=== PATIENT | male | born 1990 | race Caucasian/White ===

== ENCOUNTER 2018-06-30 16:04 | Outpatient (CLI) | payer MEDICAID, SELFPAY ==
[2018-06-30 16:58] LABS: HCT 44.9 % (40.0-50.0); HGB 15.4 g/dL (13.5-17.5); Mean Corp. HGB Concentration 34.3 g/dL (32.0-36.0); Mean Corpuscular Hemoglobin 29.1 pg (27.0-33.0); Mean Corpuscular Volume 84.7 fL (80-95); Mean Platelet Volume 10.8 fL (8.0-11.0); Platelet Count 224 x1000/uL (130-400); RBC Distribution Width 13.1 % (11.8-14.1); White Blood Cell Count 7.92 k/cumm (4.4-10.8)
[2018-06-30 17:41] LABS: ALT 44 U/L (12-78); AST 29 U/L (15-37); Albumin 3.8 g/dL (3.4-5.0); Alkaline Phosphatase 146 U/L (46-116); BUN 18 mg/dL (7-18); Bilirubin, Total 0.3 mg/dL (0.2-1.0); C-Reactive Protein 0.75 mg/dL (0.0-0.3); CREATININE 1.06 mg/dL (0.70-1.30); Calcium 8.7 mg/dL (8.5-10.1); Chloride 104 mmol/L (98-107); Glucose 85 mg/dL (70-100); Potassium 4.5 mmol/L (3.5-5.1); Sodium 140 mmol/L (136-145); Total Protein 6.8 g/dL (6.4-8.2)
[2018-06-30 17:52] LABS: ESR 2 MM/HR (0-15)
== END 2018-06-30 16:24 ==
PROVIDERS: PCP Nurse Practitioner Family; Visit Provider Nurse Practitioner Family
DX: K92.1 Melena (principal)
CPT/HCPCS: 36415; 80053; 85027; 85652; 86140

== ENCOUNTER 2020-03-29 09:19 | Outpatient (REF) | payer MEDICAID, SELFPAY | END 2020-03-29 09:39 | LOC: LBN 09:19 | PROVIDERS: PCP Nurse Practitioner Family; Visit Provider Nurse Practitioner Family | DX: R15.9 Full incontinence of feces (principal) | CPT/HCPCS: 83630 ==

== ENCOUNTER 2023-01-18 15:25 | Outpatient (CLI) | payer MEDICAID, SELFPAY ==
[2023-01-18 15:04] LABS: Abs Immature Grans 0.02 10^3/uL (0.0-0.06); Absolute Basophil Count 0.02 10^3/uL (0.0-0.2); Absolute Eosinophil Count 0.11 10^3/uL (0.0-0.7); Absolute Lymphocyte Count 1.96 10^3/uL (1.2-3.4); Absolute Monocyte Count 0.38 10^3/uL (0.1-0.8); Absolute Neutrophil Count 5.82 10^3/uL (1.2-6.7); Basophils % 0.2; Eosinophils % 1.3; HGB 16.3 g/dL (13.5-17.5); Immature Grans % 0.2; Lymphocytes % 23.6; MCH 28.6 pg (27.0-33.0); MCV 84 fL (80-95); MPV 10.6 fL (8.0-11.0); Monocytes % 4.6; Neutrophils % 70.1; Platelet Count 230 10^3/uL (130-400); RDW 12.9 % (11.8-14.1); RDW-SD 39.7 fL; WBC 8.31 10^3/uL (4.4-10.8)
[2023-01-18 16:08] LABS: ALT 49 U/L (16-63); AST 26 U/L (15-37); Albumin 3.9 g/dL (3.4-5.0); Alkaline Phosphatase 111 U/L (46-116); BUN 11 mg/dL (7-18); Bilirubin, Total 0.5 mg/dL (0.2-1.0); Calcium 8.7 mg/dL (8.5-10.1); Calculated LDL 120 mg/dL (<100); Chloride 106 mmol/L (98-107); Cholesterol 199 mg/dL (<200); Estimated GFR 103.84 (mL/min/1.73m2); Glucose 102 mg/dL (74-106); HDL Cholesterol 28 mg/dL (40-60); Potassium 3.8 mmol/L (3.5-5.1); Sodium 143 mmol/L (136-145); Total Protein 7.3 g/dL (6.4-8.2); Triglyceride 257 mg/dL (<150)
[2023-01-20 09:58] LABS: HIV-1/2 Ag & Ab Screen Negative (Negative)
[2023-01-21 15:17] LABS: Hepatitis C Ab w Rflx HCV PCR Negative (Negative)
== END 2023-01-18 15:26 | disposition home or self-care (01) ==
LOC: LBO 15:31
PROVIDERS: PCP Nurse Practitioner Family; Visit Provider Nurse Practitioner Family
DX: E78.5 Hyperlipidemia, unspecified (principal); Z13.1 Encounter for screening for diabetes mellitus; Z11.4 Encounter for screening for human immunodeficiency virus [HIV]; Z11.59 Encounter for screening for other viral diseases
CPT/HCPCS: 36415; 80053; 80061; 86803; 87389; 85025

== ENCOUNTER 2024-04-14 02:01 | Outpatient (CLI) | payer MEDICAID, SELFPAY ==
[2024-04-14 09:23] LABS: HCT 48.3 % (40.0-50.0); HGB 16.2 g/dL (13.5-17.5); MCH 28.8 pg (27.0-33.0); MCHC 33.5 % (32.0-36.0); MCV 86 fL (80-95); MPV 10.3 fL (8.0-11.0); Platelet Count 234 10^3/uL (130-400); RBC 5.63 10^6/uL (4.36-5.78); RDW 12.9 % (11.8-14.1); RDW-SD 40.1 fL; WBC 7.37 10^3/uL (4.4-10.8)
[2024-04-14 10:16] LABS: VALPROIC ACID 47.5 ug/mL
[2024-04-14 10:34] LABS: ALT 39 U/L (16-63); AST 26 U/L (15-37); Albumin 3.8 g/dL (3.4-5.0); Alkaline Phosphatase 116 U/L (46-116); Anion Gap 7.4 mmol/L (3-11); BUN 21 mg/dL (7-18); Bilirubin, Total 0.35 mg/dL (0.2-1.0); CO2 30.6 mmol/L (21.0-32.0); Calculated LDL 117 mg/dL (<100); Chloride 107 mmol/L (98-107); Cholesterol 192 mg/dL (<200); Estimated GFR 103.19 (mL/min/1.73m2); Glucose 97 mg/dL (74-106); HDL Cholesterol 33 mg/dL (40-60); Potassium 4.6 mmol/L (3.5-5.1); Sodium 145 mmol/L (136-145); TSH (W/Ref FT4) 4.43 uIU/mL (0.36-3.74); Total Protein 7.3 g/dL (6.4-8.2); Triglyceride 210 mg/dL (<150)
[2024-04-14 10:51] LABS: FREE T4 0.73 ng/dL (0.76-1.46)
[2024-04-15 11:27] LABS: IgA 158 mg/dL (85-499); Interpretation (See Note); Tissue Transglutaminase IgA <4.0 CU (<20.0)
== END 2024-04-14 02:02 | disposition home or self-care (01) ==
LOC: LBO 02:01
PROVIDERS: PCP Nurse Practitioner Family; Visit Provider Nurse Practitioner Family
DX: K59.00 Constipation, unspecified (principal); R19.8 Other specified symptoms and signs involving the digestive system and abdomen; Z79.899 Other long term (current) drug therapy; E78.5 Hyperlipidemia, unspecified; F90.9 Attention-deficit hyperactivity disorder, unspecified type; Z87.898 Personal history of other specified conditions; F84.0 Autistic disorder
CPT/HCPCS: 36415; 80053; 80061; 82784; 83516; 85027; 80164; 84439; 84443

== ENCOUNTER 2024-06-09 14:58 | Outpatient (REF) | payer MEDICAID, SELFPAY ==
[2024-06-13 19:04] LABS: Calprotectin <50.0 mcg/g
== END 2024-06-09 14:59 | disposition home or self-care (01) ==
LOC: NCHCN 14:58
PROVIDERS: PCP Nurse Practitioner Family; Visit Provider Nurse Practitioner Adult Health
DX: R19.7 Diarrhea, unspecified (principal); R19.8 Other specified symptoms and signs involving the digestive system and abdomen
CPT/HCPCS: 83993

== ENCOUNTER 2024-06-12 01:06 | Outpatient (CLI) | payer MEDICAID, SELFPAY ==
[2024-06-12 13:31] LABS: Abs Immature Grans 0.03 10^3/uL (0.0-0.06); Absolute Basophil Count 0.04 10^3/uL (0.0-0.2); Absolute Lymphocyte Count 2.36 10^3/uL (1.2-3.4); Absolute Monocyte Count 0.64 10^3/uL (0.1-0.8); Basophils % 0.5 %; Eosinophils % 1.2 %; HCT 47.2 % (40.0-50.0); HGB 15.9 g/dL (13.5-17.5); Immature Grans % 0.4 %; Lymphocytes % 29.2 %; MCH 28.6 pg (27.0-33.0); MCHC 33.7 % (32.0-36.0); MCV 85 fL (80-95); MPV 9.8 fL (8.0-11.0); Monocytes % 7.9 %; Neutrophils % 60.8 %; Platelet Count 237 10^3/uL (130-400); RBC 5.55 10^6/uL (4.36-5.78); RDW 13.2 % (11.8-14.1); RDW-SD 41.1 fL; WBC 8.07 10^3/uL (4.4-10.8)
[2024-06-12 13:44] LABS: Hemoglobin A1C 5.5 % (<5.7)
[2024-06-12 13:46] LABS: VALPROIC ACID 58.8 ug/mL
[2024-06-12 14:04] LABS: ALT 54 U/L (16-63); AST 34 U/L (15-37); Albumin 3.9 g/dL (3.4-5.0); Alkaline Phosphatase 99 U/L (46-116); Anion Gap 10.3 mmol/L (3-11); BUN 15 mg/dL (7-18); Bilirubin, Total 0.44 mg/dL (0.2-1.0); CO2 28.7 mmol/L (21.0-32.0); CREATININE 1.2 mg/dL (0.70-1.30); Calcium 8.5 mg/dL (8.5-10.1); Chloride 106 mmol/L (98-107); Estimated GFR 82.92 (mL/min/1.73m2); Glucose 89 mg/dL (74-106); Potassium 4.2 mmol/L (3.5-5.1); Sodium 145 mmol/L (136-145); Total Protein 7.4 g/dL (6.4-8.2)
[2024-06-12 14:07] LABS: FREE T4 0.92 ng/dL (0.76-1.46); TSH (W/Ref FT4) 6.66 uIU/mL (0.36-3.74)
[2024-06-12 14:44] LABS: Calculated LDL 137 mg/dL (<100); Cholesterol 196 mg/dL (<200); HDL Cholesterol 33 mg/dL (40-60); Triglyceride 133 mg/dL (<150); Vitamin B12 1038 pg/mL (193-986)
[2024-06-12 23:45] LABS: T3, Total 247 ng/dL (97-169)
[2024-06-15 14:44] LABS: IgA 161 mg/dL (85-499); Interpretation (See Note); Tissue Transglutaminase IgA <4.0 CU (<20.0)
== END 2024-06-12 01:07 | disposition home or self-care (01) ==
LOC: LBO 01:07
PROVIDERS: Psychiatry & Neurology Psychiatry; PCP Nurse Practitioner Family; Visit Provider Nurse Practitioner Family
DX: R79.89 Other specified abnormal findings of blood chemistry (principal)
CPT/HCPCS: 36415; 80053; 80061; 82784; 83516; 80164; 82607; 83036; 84439; 84443; 84480; 85025

== ENCOUNTER 2024-08-21 16:42 | Outpatient (CLI) | payer MEDICAID, SELFPAY ==
[2024-08-21 15:06] LABS: TSH (W/Ref FT4) 2.35 uIU/mL (0.36-3.74)
[2024-08-21 15:28] LABS: VALPROIC ACID 78.5 ug/mL
== END 2024-08-21 16:43 | disposition home or self-care (01) ==
LOC: LBO 16:45
PROVIDERS: PCP Nurse Practitioner Family; Visit Provider Psychiatry & Neurology Psychiatry
DX: R79.89 Other specified abnormal findings of blood chemistry (principal); Z79.899 Other long term (current) drug therapy
CPT/HCPCS: 36415; 80164; 84443

== ENCOUNTER 2024-10-16 00:48 | Outpatient (CLI) | payer MEDICAID, SELFPAY ==
[2024-10-16 14:09] LABS: VALPROIC ACID 80.4 ug/mL
== END 2024-10-16 00:49 | disposition home or self-care (01) ==
LOC: LBO 00:48
PROVIDERS: PCP Nurse Practitioner Family; Visit Provider Psychiatry & Neurology Psychiatry
DX: F84.0 Autistic disorder (principal); F90.0 Attention-deficit hyperactivity disorder, predominantly inattentive type; Z79.899 Other long term (current) drug therapy
CPT/HCPCS: 36415; 80164

== ENCOUNTER 2024-12-04 12:39 | Outpatient (CLI) | payer MEDICAID, SELFPAY ==
[2024-12-04 13:21] LABS: Hemoglobin A1C 5.5 % (<5.7)
[2024-12-04 13:28] LABS: Calculated LDL 123 mg/dL (<100); Cholesterol 193 mg/dL (<200); HDL Cholesterol 29 mg/dL (>or=40); Triglyceride 208 mg/dL (<150)
[2024-12-04 14:04] LABS: VALPROIC ACID 87.9 ug/mL
== END 2024-12-04 12:40 | disposition home or self-care (01) ==
LOC: LBO 12:39
PROVIDERS: PCP Nurse Practitioner Family; Visit Provider Psychiatry & Neurology Psychiatry
DX: Z79.899 Other long term (current) drug therapy (principal)
CPT/HCPCS: 36415; 80061; 80164; 83036

== ENCOUNTER 2025-01-01 01:07 | Outpatient (CLI) | payer MEDICAID, SELFPAY | END 2025-01-01 01:08 | disposition home or self-care (01) | LOC: LBO 01:08 | PROVIDERS: PCP Nurse Practitioner Family; Visit Provider Psychiatry & Neurology Psychiatry | DX: Z79.899 Other long term (current) drug therapy (principal) | CPT/HCPCS: 36415; 80164 ==

== ENCOUNTER 2025-04-02 03:01 | Outpatient (CLI) | payer MEDICAID, SELFPAY ==
[2025-04-02 14:40] LABS: Abs Immature Grans 0.04 10^3/uL (0.0-0.06); HCT 46.1 % (40.0-50.0); HGB 15.6 g/dL (13.5-17.5); Immature Grans % 0.6 %; MCH 29.2 pg (27.0-33.0); MCHC 33.8 % (32.0-36.0); MCV 86 fL (80-95); MPV 10.5 fL (8.0-11.0); Platelet Count 178 10^3/uL (130-400); RBC 5.34 10^6/uL (4.36-5.78); RDW 12.6 % (11.8-14.1); RDW-SD 39.8 fL; WBC 6.89 10^3/uL (4.4-10.8)
[2025-04-02 15:12] LABS: Hemoglobin A1C 5.5 % (<5.7)
[2025-04-02 15:36] LABS: ALT 92 U/L (16-63); AST 38 U/L (15-37); Albumin 3.8 g/dL (3.4-5.0); Alkaline Phosphatase 148 U/L (46-116); Anion Gap 10.4 mmol/L (3-11); BUN 19 mg/dL (7-18); Bilirubin, Total 0.3 mg/dL (0.2-1.0); CO2 26.6 mmol/L (21.0-32.0); Calcium 8.2 mg/dL (8.5-10.1); Calculated LDL 109 mg/dL (<100); Chloride 105 mmol/L (98-107); Cholesterol 184 mg/dL (<200); Estimated GFR 116.37 (mL/min/1.73m2); Glucose 96 mg/dL (74-106); HDL Cholesterol 28 mg/dL (>or=40); Potassium 4.0 mmol/L (3.5-5.1); Sodium 142 mmol/L (136-145); TSH (W/Ref FT4) 7.83 uIU/mL (0.36-3.74); Total Protein 7.3 g/dL (6.4-8.2); Triglyceride 237 mg/dL (<150)
== END 2025-04-02 03:02 | disposition home or self-care (01) ==
LOC: LBO 03:01
PROVIDERS: PCP Nurse Practitioner Family; Visit Provider Psychiatry & Neurology Psychiatry
DX: Z79.899 Other long term (current) drug therapy (principal)
CPT/HCPCS: 36415; 80053; 80061; 80164; 83036; 84439; 84443; 85025

== ENCOUNTER 2025-05-14 13:43 | Outpatient (CLI) | payer MEDICAID, SELFPAY | END 2025-05-14 13:44 | disposition home or self-care (01) | LOC: LBO 13:43 | PROVIDERS: PCP Nurse Practitioner Family; Visit Provider Psychiatry & Neurology Psychiatry | DX: Z79.899 Other long term (current) drug therapy (principal) | CPT/HCPCS: 36415; 80164 ==